=== PATIENT | female | born 1985 | race Caucasian/White ===

== ENCOUNTER → 2018-06-07 13:38 | Outpatient (CLI) | payer OTHER, SELFPAY ==
[2018-06-10 08:30] LABS: HPV Reflexed? NOT INDICATED
== END ==
PROVIDERS: Visit Provider Obstetrics & Gynecology
DX: Z12.4 Encounter for screening for malignant neoplasm of cervix (principal)
CPT/HCPCS: 88175; G0145

== ENCOUNTER → 2020-06-14 09:25 | Outpatient (CLI) | payer OTHER, SELFPAY ==
[2020-06-14 11:58] LABS: Absolute Lymphocyte Count 2.01 X10^3/uL (0.83-4.51); Absolute Neutrophil Count 2.7 X10^3/uL (2.0-7.7); Basophil# 0.05 X10^3/uL; Eosinophil# 0.05 X10^3/uL; Hematocrit 44.7 % (37-47); Hemoglobin 14.4 g/dL (12.0-15.0); Lymphocyte # 2.01 X10^3/ul (4.0); Lymphocyte % 38.4 % (19-41); Mean Corp Hgb Conc 32.2 g/dL (32-36); Mean Corpuscular Hgb 30.2 pg (27.0-32.0); Mean Corpuscular Volume 93.7 fL (81-99); Mean Platelet Vol. 10.4 fl (6.2-12.0); Monocyte# 0.39 X10^3/uL; Monocyte% 7.4 % (0-10); NRBC Flagged by Analyzer 0 % (0-5); Neutrophil # 2.73 X10^3/uL (2.7-7.7); Platelet Count 208 K/mm3 (150-450); RBC Distribution Width CV 12.6 % (11.6-14.6); RBC Distribution Width SD 43.3 fl (35.1-43.9); Red Blood Count 4.77 M/mm3 (4.2-5.4); White Blood Count 5.2 K/mm3 (4.4-11.0)
[2020-06-14 12:37] LABS: Anion Gap 5 (5-15); BUN 11 mg/dL (7-18); BUN/Creat Ratio 12.6 RATIO (10-20); CRP < 2.90 mg/L (0.0-3.0); Calcium,Total 9.3 mg/dL (8.5-10.1); Chloride 106 mmol/L (98-107); Creatinine, Serum 0.87 mg/dL (0.55-1.02); EST Glomerular Filtration Rate 79 mL/min (>60); Est Glom Filt Rate - Afr Amer 95 mL/min (>60); Glucose 81 mg/dL (74-106); Potassium 3.6 mmol/L (3.5-5.1); Rheumatoid Factor < 10.0 IU/mL (<15); Sodium Level 141 mmol/L (136-145); Thyroid Stim Hormone (TSH) 2.83 uIU/mL (0.358-3.74)
[2020-06-15 16:57] LABS: ANTINUCLEAR ANTIBODIES DIRECT Negative (Negative)
[2020-06-22 03:07] LABS: Cytoplasmic Ab (C-ANCA) <1:20 titer (Neg:<1:20); Lyme IgG P18 Ab Absent (.); Lyme IgG P23 Ab Absent (.); Lyme IgG P28 Ab Absent (.); Lyme IgG P30 Ab Absent (.); Lyme IgG P39 Ab Absent (.); Lyme IgG P41 Ab Present (.); Lyme IgG P45 Ab Absent (.); Lyme IgG P58 Ab Absent (.); Lyme IgG P66 Ab Absent (.); Lyme IgG P93 Ab Absent (.); Lyme IgM P23 Ab Absent (.); Lyme IgM P39 Ab Absent (.); Lyme IgM P41 Ab Absent (.)
[2020-06-22 09:38] LABS: Lyme IgG WB Interpretation Negative (.); Lyme IgM WB Interpretation Negative (.); Perinuclear Ab (P-ANCA) <1:20 titer (Neg:<1:20)
== END ==
PROVIDERS: PCP Family Medicine; Visit Provider Family Medicine
DX: R00.2 Palpitations (principal); R42 Dizziness and giddiness; H93.8X1 Other specified disorders of right ear; R53.83 Other fatigue
CPT/HCPCS: 36415; 80048; 84443; 85025; 86038; 86140; 86225; 86235; 86256; 86431; 86617

== ENCOUNTER 2020-12-28 13:51 | Outpatient (RCR) | payer OTHER, SELFPAY | END 2021-03-05 23:59 | LOC: IMMUN 13:51 | PROVIDERS: PCP Family Medicine; Visit Provider Family Medicine | DX: Z23 Encounter for immunization (principal) | CPT/HCPCS: 0001A; 91300 ==

== ENCOUNTER 2021-02-13 12:00 | Outpatient (RCR) | payer OTHER, SELFPAY ==
--- NOTE | 2021-01-14 14:53 | HP.PTEVAL_ITS ---
Patient's Visit Information HAJA QUINTANILLA is a 35 year old F referred to Physical Therapy by Dr. Kolby Flores MD with a diagnosis of BPPV. Date of Evaluation: 01/14/21 Physical Therapist: TYLER Oswald - Visit Plan Frequency: 1-2x /Week Duration: 4 Weeks Plan: Re check L Hallpike.... then check R Hallpike. Check VOR. If all ok and still dizzy with sitting to supine, supine to L side, L and R Hallpike, Head nods give as habituation exercises - Subjective Pt has always been sensitive to visual stuff and motion but over the last year she has waken up with an intense vertigo. She has no issues when she is up and moving. When she looks down she feels dizzy. 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 Yesterday at [employer] she tried to look down at her bulletin and she fot dizzy. She has seen Dr Flores twice... and he feels it is positional vertigo. Dr leaned her back to check for the vertigo and did the hearing test and looked into her ear. Her Dr had done blood work before Dr Flores. When she is rolling over in the middle of the night it wakes her up and she is spinning and falling through the bed and lasts 5-10 seconds. She does not get it everytime she rolls over... past time it was a lot of nights in a row. The past 2 nights she has slept really good. Then senstation she gets when she goes to look down she feels like she is going to fall over and like she has to hold onto something. That is everytime she looks down. No one has checked for any neck issues. She has no neck pain. She has R ear fullness and that comes and goes everyday. Once in awhile she will get a click in her ear... like a spasm. She has some tingling at night in her hands.. a couple times a week. 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 No dizziness at the green house. Being still makes her worse. She does have TMJ.... Her PCP is Dr Julio - Objective Questionable + Hallpike to B .... PT FOR SURE became dizzy R and L Hallpike but lasted less than 3 seocnds and hard to see if nystagmus... but pt grabed the table both sides in anticipation of being dizzy. Went ahead and treated L Philipppiana with Eply. On re-try of L Eply she had slight symptoms... Retried the 3rd L Hallpike and she had no symptoms but did have anxiety and grabbed the table in anticipation of being dizzy/room spinning with none of that occurring. Motion Sensitivity Completed: pt struggled with sitting to supine, supine to L side, L and R Hallpike, Head nods. Pt had felt like her eyes had a hard time keeping up with her head with turning head horizontally. - Goals Goal 1:: I HEP Goal Time Frame: 4-6 Weeks Goal 2:: Abolish dizzinees with sit to supine and supine to L side lying Goal Time Frame: 4-6 Weeks Goal 3:: Abolish dizziness when looking down and with head nods. Goal Time Frame: 4-6 Weeks - Rehabilitation Potential Rehabilitation Potential: Good - Anticipated Interventions Patient/Client Instruction: Educate patient on: Condition, Plan of Care For the Purpose of:: To improve muscle performance and motor function, To improve ability to perform ADL's, To increase tolerance to activity/condition/position, To improve performance and independence with ADL's, To improve ability of physical actions for home/community/work/leisure, To improve health of tissue, To improve balance, To improve safety with gait Therapeutic Exercise to Include: Strength training, Balance training, Body mechanics, Postural training, Gait and locomotor training, Neuromotor development For the Purpose of:: To improve muscle performance and motor function, To improve ability to perform ADL's, To increase tolerance to activity/condition/position, To improve performance and independence with ADL's, To improve ability of physical actions for home/community/work/leisure, To improve gait and locomotor functions, To improve endurance, To improve balance Manual Therapy Techniques to Include: Other Thank you for the opportunity to evaluate your patient. For Medicare and Medicare HMO plans, please review the plan of care and approve it. It will need to be FAXED BACK to us at [phone] for Medicare purposes. For Medicare only, by signing this I certify the plan of care. Please let me know if there are questions or concerns regarding this plan of care. Physician Signature: Date:
--- NOTE | 2021-07-09 09:36 | HP.PT.NRP ---
HAJA QUINTANILLA was seen in my office for initial evaluation on 01/14/21. The following Plan of Care was established for this patient: Initial Frequency: 1-2x /Week Initial Duration: 4 Weeks Patient/Client Instruction: Educate patient on: Condition, Plan of Care For the Purpose of:: To improve muscle performance and motor function, To improve ability to perform ADL's, To increase tolerance to activity/condition/position, To improve performance and independence with ADL's, To improve ability of physical actions for home/community/work/leisure, To improve health of tissue, To improve balance, To improve safety with gait Therapeutic Exercise to Include: Strength training, Balance training, Body mechanics, Postural training, Gait and locomotor training, Neuromotor development For the Purpose of:: To improve muscle performance and motor function, To improve ability to perform ADL's, To increase tolerance to activity/condition/position, To improve performance and independence with ADL's, To improve ability of physical actions for home/community/work/leisure, To improve gait and locomotor functions, To improve endurance, To improve balance Manual Therapy Techniques to Include: Other This patient was last seen in our office 02/13/21. Pertinent comments regarding their Physical therapy will appear below: DC PT as pt did not reschedule her last appt. At this point I will be discontinuing this patient from physical therapy. I would be happy to see this patient again in the future if found appropriate by the physician. Thank you! Daria Boyer, MPT Balance/Gait/Functional tests - Balance/Special Test Scores Dizziness Score: 20
== END 2021-02-13 19:00 | disposition home or self-care (01) ==
LOC: PT 12:00
PROVIDERS: PCP Family Medicine; Referring Provider Otolaryngology; Visit Provider Otolaryngology
DX: H81.11 Benign paroxysmal vertigo, right ear (principal)
CPT/HCPCS: 97110; 97161

== ENCOUNTER → 2021-06-17 11:19 | Outpatient (CLI) | payer OTHER, SELFPAY ==
--- NOTE | 2021-06-17 12:55 | NEURO ---
NCS and/or EMG Patient Report Ordering Doctor: Karen Palacio DATE OF SERVICE: 06/17/21 Indication: Intermittent hand numbness and tingling (left greater than right). Symptoms occur mainly during sleep and awaken the patient. Rarely, similar sensory changes occur during the day depending on activity. Evaluate for cervical radiculopathy and/or entrapment neuropathy. Findings: Nerve conduction studies were performed in the right and left upper extremities. The right median motor study recording the abductor pollicis brevis showed a normal amplitude, normal distal latency and normal conduction velocity. The right ulnar motor study recording the abductor digiti minimi showed a normal amplitude, normal distal latency and normal conduction velocity. No conduction block or focal slowing was present across the elbow. Right median-ulnar lumbrical / interosseous motor latencies showed a normal median latency compared to the ulnar. The right median sensory response recording digit two showed a normal amplitude, latency and conduction velocity. The right ulnar sensory response recording digit five showed a normal amplitude, latency and conduction velocity. The right radial sensory response recording over the extensor snuff box showed a normal amplitude, latency and conduction velocity. The left median motor study recording the abductor pollicis brevis showed a normal amplitude, normal distal latency and normal conduction velocity. The left ulnar motor study recording the abductor digiti minimi showed a normal amplitude, normal distal latency and normal conduction velocity. No conduction block or focal slowing was present across the elbow. Left median-ulnar lumbrical / interosseous motor latencies showed a prolonged median latency compared to the ulnar. The left median sensory response recording digit two showed a normal amplitude, prolonged latency and mildly slowed conduction velocity. The left ulnar sensory response recording digit five showed a normal amplitude, latency and conduction velocity. The left radial sensory response recording over the extensor snuff box showed a normal amplitude, latency and conduction velocity. Needle EMG of the left upper extremity and cervical paraspinal muscles was performed. No denervation was seen in any muscle. All motor unit morphology, activation and recruitment patterns were normal. Needle EMG of the right upper extremity was omitted due to the paucity of findings in the more symptomatic limb. Impression: This is a mildly abnormal study. 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 However, 5% of patients will have a false negative study. Presumably, in these patients, intermittent compression results in pain and paresthesias from ischemia, but without any fixed demyelination or axonal loss that can be demonstrated on electrodiagnostic studies. Finally, there is no electrophysiologic evidence of a superimposed cervical radiculopathy in the left upper extremity. Fred Bustamante D.O. Multi Select Codes Neurology Neurology Interp Codes: 01307-56 [facility] [place]/n test comp (interp) and 45669[facility] ([facility]p)
== END ==
PROVIDERS: PCP Family Medicine; Referring Provider Family Medicine; Visit Provider Family Medicine
DX: R20.2 Paresthesia of skin (principal); R29.898 Other symptoms and signs involving the musculoskeletal system
CPT/HCPCS: 95886; 95913

== ENCOUNTER → 2022-11-07 | Outpatient (CLI) | payer OTHER, SELFPAY ==
--- NOTE | 2022-11-07 09:47 | VDLE_ITS ---
Reason For Study: LEG PAIN RIGHT LEFT GSV is normal. CFV is compressible, spontaneous, phasic, CFV is compressible, spontaneous, phasic, competent, and demonstrates normal competent and demonstrates normal augmentation. augmentation. FV is compressible, spontaneous, phasic, competent and demonstrates normal augmentation. POP V is compressible, spontaneous, phasic, competent and demonstrates normal augmentation. T/P Trunk is compressible. PTV is compressible. RT PerV is compressible. Procedure This is a venous duplex using B-mode, color flow and spectral Doppler. Exam performed in department. The exam was diagnostic. A preliminary report was called and/or faxed to Dr. Díaz. VL/Venous Duplex US, Unilateral Interpretation Summary Deep veins of the right lower extremity are patent and compressible segmentally . There is no evidence of right lower extremity deep vein thrombosis. Valvular competence bee ears intact within the proximal deep venous system on the right . The right great saphenous vein a ppears patent and compressible segmentally. The left common femoral vein is patent and compressib le. Ordering Physician: Augusto Díaz Referring Physician: Augusto Díaz Performed By: Berlin Bar RVT
== END | disposition home or self-care (01) ==
LOC: CVS 09:46
PROVIDERS: PCP Family Medicine; Referring Provider Family Medicine; Visit Provider Family Medicine
DX: M79.604 Pain in right leg (principal)
CPT/HCPCS: 93971

== ENCOUNTER → 2025-02-13 | Outpatient (CLI) | payer OTHER, SELFPAY | END | disposition home or self-care (01) | LOC: LABSPEC 12:26 | PROVIDERS: PCP Family Medicine; Visit Provider Nurse Practitioner Family | DX: Z12.4 Encounter for screening for malignant neoplasm of cervix (principal) | CPT/HCPCS: 87624; 88175; G0145 ==

== ENCOUNTER → 2025-03-29 | Outpatient (CLI) | payer OTHER, SELFPAY | END | disposition home or self-care (01) | LOC: LABSPEC 10:19 | PROVIDERS: PCP Family Medicine; Visit Provider Obstetrics & Gynecology | DX: N84.1 Polyp of cervix uteri (principal) | CPT/HCPCS: 88305 ==

== ENCOUNTER → 2025-04-18 | Outpatient (CLI) | payer OTHER, SELFPAY ==
--- NOTE | 2025-04-18 09:57 | RAD_ITS ---
PROCEDURE: CERV SPINE 4 OR 5 VIEWS 04/18/2025 REASON FOR EXAM: CERVICAL PAIN, RADICULOPATHY TECHNIQUE: CERV SPINE 4 OR 5 VIEWS COMPARISON: None. FINDINGS: No evidence of fracture or subluxation. Mild straightening of the cervical lordosis may be positional or related to muscle spasm. Preserved vertebral body heights with relatively well preserved disc spaces. Minimal spondylotic changes primarily characterized by mild facet hypertrophy. No significant osseous neural foraminal narrowing on either side. No prevertebral soft tissue swelling. RAD/Cerv Spine 4 or 5 Views IMPRESSION: No evidence of fracture, subluxation, or significant degenerative changes. Reading Location: [id number]
== END | disposition home or self-care (01) ==
LOC: MTRAD 09:55
PROVIDERS: PCP Family Medicine; Referring Provider Family Medicine; Visit Provider Family Medicine
DX: M54.12 Radiculopathy, cervical region (principal)
CPT/HCPCS: 72050

== ENCOUNTER → 2025-04-19 | Outpatient (CLI) | payer OTHER, SELFPAY ==
--- NOTE | 2025-04-19 12:34 | BI_ITS ---
EXAM: SCRN MAMM (CAD)W/NERY BILAT DATE: 04/19/2025 CLINICAL HISTORY: F, Age 39 y/o , ANNUAL TECHNIQUE: SCRN MAMM (CAD)W/NERY BILAT COMPARISON: Baseline examination, no priors. FINDINGS: TISSUE DENSITY: The breasts are heterogeneously dense, which may obscure small masses. The mammogram demonstrates that the patient has dense breasts. Supplemental screening with whole breast ultrasound or MRI may be considered for further evaluation. Bilateral Breast Mammographic Findings: No significant masses, calcifications or other abnormalities are identified. BI/SCRN MAMM (CAD)W/NERY BILAT IMPRESSION: There is no mammographic evidence of malignancy. OVERALL FINAL ASSESSMENT BI-RADS 1: NEGATIVE. RECOMMENDATION: Routine annual follow-up in 1 Year A letter with findings and recommendations will be mailed to the patient. Reading Location: [id number]
== END | disposition home or self-care (01) ==
LOC: OPBI 12:19
PROVIDERS: PCP Family Medicine; Referring Provider Nurse Practitioner Family; Visit Provider Nurse Practitioner Family
DX: Z12.31 Encounter for screening mammogram for malignant neoplasm of breast (principal)
CPT/HCPCS: 77063; 77067

== ENCOUNTER 2025-05-23 09:30 | Outpatient (RCR) | payer OTHER, SELFPAY ==
--- NOTE | 2025-04-20 10:51 | HP.PTEVAL ---
Patient's Visit Information Visit Information Visit Information: HAJA QUINTANILLA is a 39 year old F referred to Physical Therapy by Dr. Augusto Díaz DO with a diagnosis of RADICULOPATHY ,CERVICAL. Date of Evaluation: 04/20/25 Physical Therapist: Duane Taylor, PT, Cert MDT, OCS Visit Plan Frequency: 2x /Week Duration: 3 Weeks Plan: PT INTERVENTIONS -JOHANA EX'S WITH PROGRESSION OF FORCES -US/CP -MANUAL THERAPY -POSTURAL EX'S -ACTIVITY MODIFCATION Subjective Subjective: This 39 y/o female presents to physical therapy with right cervical radiculopathy . Patient noticed symptoms in right arm 1 month ago with paresthesia in right arm in in middle of night. Patient seen DR 2 weeks started meloxicam and muscle relaxers. x-rays looked good. Location of symptoms right UT shoulder forearm to fingers and described as deep ache., Aggravating factors sitting ,looking down ,bending over and lifting. Alleviating factors recliner ,resting. Denies CORTÉS /tinnitus/nausea. Symptoms can affects sleeping .No treatment. No injury /tuama.No h/o of arm and neck pain. Patient condition affects ADLS and job demands. Patient goals to decrease symptoms. SOCAIL: LEISURE : gardening VOCATION: [email or web address] Pain Right: Pain Intensity (Out of 10): 4 Pain Intensity Range: 4 and 9 Comment: ARM Objective Objective: POSTURE: mild forward posture ,rounded shoulders head forward PALAPTION: tender UT/levator /scapular NEURO:denies c/o paresthesia/tingling ,reflexes C5-6-7 1/3 left ,right 3/3 ,myotome weakness C6-7 AROM: BUE WFL MMT: BUE Grossly 4/5 right except tricep ,wrist flexion 4-/5 right CERVICAL ROM: flexion WFL ,extension WFL ,retraction WFL ,protrusion WFL ,Lateral flexion/rotation min loss Special Tests C/S Radiculapathy - Left Upper limb tension test: Negative C/S Radiculapathy - Right Upper limb tension test: Negative Sharp Grant: Negative Vertebral Artery Test: Negative Alar Ligament Test: Negative Cervical Sitting: Protrusion - Mechanical Response: No effect Cervical Sitting: Protrusion - Symptoms During Testing: Increases Cervical Sitting: Protrusion - Symptoms After Testing: Worse Cervical Sitting: Retraction - Mechanical Response: No effect Cervical Sitting: Retraction - Symptoms During Testing: Increases Cervical Sitting: Retraction - Symptoms After Testing: No worse Cervical Sitting: Retraction-Extension - Mechanical Response: No effect Cerv Sitting: Retraction-Extension - Symptoms During Testing: Decreases Cerv Sitting: Retraction-Extension - Symptoms After Testing: Better Cervical Sitting: Sidebend Right - Mechanical Response: No effect Cervical Sitting: Sidebend Right - Symptoms During Testing: No effect Cervical Sitting: Sidebend Right - Symptoms After Testing: No effect Cervical Sitting: Sidebend Left - Mechanical Response: No effect Cervical Sitting: Sidebend Left - Symptoms During Testing: No effect Cervical Sitting: Sidebend Left - Symptoms After Testing: No effect Cervical Sitting: Rotation Right - Mechanical Response: No effect Cervical Sitting: Rotation Right - Symptoms During Testing: No effect Cervical Sitting: Rotation Right - Symptoms After Testing: No effect Cervical Sitting: Rotation Left - Mechanical Response: No effect Cervical Sitting: Rotation Left - Symptoms During Testing: No effect Cervical Sitting: Rotation Left - Symptoms After Testing: No effect Cervical Sitting: Flexion - Mechanical Response: No effect Cervical Sitting: Flexion - Symptoms During Testing: Increases Cervical Sitting: Flexion - Symptoms After Testing: Worse Balance/Special Test Scores Oswestry Neck Score: 14 Goals Goal 1:: Patient to be I with HEP for cervical Goal Time Frame: 4-6 Weeks Goal 2:: Patient to improve cervical ROM for function of recovery for driving and job Goal Time Frame: 4-6 Weeks Goal 3:: Patient to improve myotome weakness C6-7 to improve function and job demands Goal Time Frame: 4-6 Weeks Goal 4:: Patient to improve neck oswestry score by 5 points to improve QOL and function Goal Time Frame: 4-6 Weeks Goal 5:: Patient to demonstrate 50% improvement with less pain and improved job demands Goal Time Frame: 4-6 Weeks Rehabilitation Potential Physical Therapy Diagnosis: This patient has cervical derangement below elbow with symptoms presents with disc issue with worse with flexion and better with extension thus benefit from skilled PT Rehabilitation Potential: Good Anticipated Interventions Patient/Client Instruction: Educate patient on: Condition and Plan of Care For the Purpose of:: To decrease pain, To increase ROM, To improve muscle performance and motor function, To improve ability to perform ADL's, To increase tolerance to activity/condition/position, To improve ability of physical actions for home/community/work/leisure, To improve health of tissue, To decrease soft tissue restriction, To increase flexibility/ROM and To improve tolerance to ADL's Therapeutic Exercise to Include: Strength training, Postural training, Flexibilty training, Active ROM and Johana Exercises For the Purpose of:: To decrease pain, To increase ROM, To improve muscle performance and motor function, To improve ability to perform ADL's, To increase tolerance to activity/condition/position, To improve ability of physical actions for home/community/work/leisure, To improve health of tissue, To decrease soft tissue restriction, To increase flexibility/ROM and To improve tolerance to ADL's Manual Therapy Techniques to Include: Mobilization For the Purpose of:: To decrease pain, To increase ROM, To improve health of tissue, To decrease soft tissue restriction and To increase flexibility/ROM TENS: Yes IF ES: Yes Cryotherapy (ice pack, ice massage): Yes Thermo therapy (hot pack): Yes Ultrasound (thermal/non thermal): Yes For the Purpose of:: To decrease pain, To increase ROM, To improve nutrient delivery to tissue, To increase oxygenation perfusion, To improve health of tissue and To decrease soft tissue restriction Text: Thank you for the opportunity to evaluate your patient. For Medicare and Medicare HMO plans, please review the plan of care and approve it. It will need to be FAXED BACK to us at [phone] for Medicare purposes. For Medicare only, by signing this I certify the plan of care. Please let me know if there are questions or concerns regarding this plan of care. Physician Signature: Date:
--- NOTE | 2025-05-23 10:13 | HP.PTDCSUM ---
Discharge Summary D/C summary: It has been my pleasure to treat HAJA QUINTANILLA referred by Dr. Augusto Díaz DO, with the diagnosis of RADICULOPATHY ,CERVICAL for a total of 6 visit(s). Discharge Date: 05/23/25 Please see the following information for a summary of their discharge status. Subjective Subjective: Doing good no pain No Numbness Pain Right: Pain Intensity (Out of 10): 0 neck: Pain Intensity (Out of 10): 0 Overall Improvement % Improvement: 90 Objective Objective/Function: POSTURE: mild forward posture ,rounded shoulders head forward PALAPTION: tender UT/levator /scapular NEURO:denies NONE paresthesia/tingling ,reflexes C5-6-7 1/3 left ,right 3/3 , AROM: BUE WFL MMT: BUE Grossly 4/5 right except tricep ,wrist flexion 4/5 right CERVICAL ROM: flexion WFL ,extension WFL ,retraction WFL ,protrusion WFL ,Lateral flexion/rotation WNL Goals Goal 1:: Patient to be I with HEP for cervical Goal Progress: Goal Met Goal 2:: Patient to improve cervical ROM for function of recovery for driving and job Goal Progress: Goal Met Goal 3:: Patient to improve myotome weakness C6-7 to improve function and job demands Goal Progress: Goal Met Goal 4:: Patient to improve neck oswestry score by 5 points to improve QOL and function Goal Progress: Goal Met Goal 5:: Patient to demonstrate 50% improvement with less pain and improved job demands Goal Progress: Goal Met Plan Plan: D/C D/C Information Discharge Comments: HEP d/c sentence: If there are questions or concerns regarding this patient's physical therapy, please feel free to call me at [phone]. Thank you for the referral of this patient. Sincerely, Duane Taylor, PT, Cert MDT, OCS Balance/Gait/Functional tests Balance/Special Test Scores Oswestry Neck Score: 0 Improvement % Improvement: 90
== END 2025-05-23 19:00 | disposition home or self-care (01) ==
LOC: PT 09:30
PROVIDERS: PCP Family Medicine; Visit Provider Family Medicine
DX: M54.12 Radiculopathy, cervical region (principal)
CPT/HCPCS: 97110; 97140; 97162